=== PATIENT | female | born 1990 | race Caucasian/White ===

== ENCOUNTER 2017-04-12 15:55 | Emergency (ER) | payer MEDICAID, OTHER ==
[~2017-04-12] VITALS: Ht 162.6 cm; Wt 150.0 kg
[2017-04-12] MEDS ORDERED: KETOROLAC 60MG/2ML VIAL IM ONE (22:15)
[2017-04-12 22:25] VITALS: BP 121/69
== END 2017-04-12 22:42 | disposition home or self-care (01) ==
LOC: ER 20:15
DX: S83.91XA Sprain of unspecified site of right knee, initial encounter (principal); X58.XXXA Exposure to other specified factors, initial encounter; Y93.89 Activity, other specified; Y92.89 Other specified places as the place of occurrence of the external cause; Y99.8 Other external cause status; Z98.890 Other specified postprocedural states
CPT/HCPCS: 73562; 81025; 96372; 99284; J1885; Z7610